=== PATIENT | female | born 1990 | race African-American/Black ===

== ENCOUNTER → 2018-02-09 | Outpatient (CLI) | payer BC ==
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
== END | disposition home or self-care (01) ==
LOC: CT 10:17
PROVIDERS: ATTEND Nurse Practitioner Family
DX: R55 Syncope and collapse (principal); J32.8 Other chronic sinusitis; I10 Essential (primary) hypertension; Z88.8 Allergy status to other drugs, medicaments and biological substances
CPT/HCPCS: 70450

== ENCOUNTER 2020-01-10 02:45 | Emergency (ER) | payer BC, OTHER ==
[~2020-01-10] VITALS: Ht 160 cm; Wt 54.0 kg
[2020-01-10 02:51] VITALS: BP 152/84
[2020-01-10] MEDS ORDERED: silver sulfADIAZINE 1% CREAM 50GM JAR. TP ONE (03:00)
[2020-01-10] MEDS ORDERED: HYDR-3165 PO (03:05)
[2020-01-10] MEDS ORDERED: SILV20CR14 TP (03:05)
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
[2020-01-10] MEDS ORDERED: DIPH,PERTUSS(ACELL),TET VAC/PF 0.5 ML SYRINGE. VAX IM ONE (03:15)
[2020-01-10] MEDS ORDERED: HYDROcodone/APAP 5/325MG 1 TAB TABLET PO ONE (03:15)
== END 2020-01-10 03:42 | disposition home or self-care (01) ==
LOC: ER 02:45
DX: T22.212A Burn of second degree of left forearm, initial encounter (principal); T22.211A Burn of second degree of right forearm, initial encounter; F17.200 Nicotine dependence, unspecified, uncomplicated; X08.8XXA Exposure to other specified smoke, fire and flames, initial encounter; Y93.89 Activity, other specified; Y92.098 Other place in other non-institutional residence as the place of occurrence of the external cause; Y99.8 Other external cause status
CPT/HCPCS: 16020; 90471; 90715; 99283